=== PATIENT | female | born 2000 | race Hispanic/Latino ===

== ENCOUNTER 2019-02-23 07:15 | Inpatient (IN) | payer BC, OTHER ==
--- OUTSIDE RECORDS SUMMARY | 2019-02-23 07:59 | XMS REPORT ---
:2000 Author Organization [employer] Care Team Providers Name Role Phone Brendan Daniels Provider Role Unavailable Allergies, Adverse Reactions, Alerts Substance Reaction Event Type penicillin Info Not Available Drug Allergy Problems No Known Problems Medications No Known Medications Results No Known Results Summary Purpose eClinicalWorks Submission
--- OUTSIDE RECORDS SUMMARY | 2019-02-23 07:59 | XMS REPORT ---
:2000 Author Organization [employer] Care Team Providers Name Role Phone Brendan Daniels Provider Role Unavailable Allergies No Known Allergies Problems No Known Problems Medications Medication Code System Code Instructions Start Date End Date Status Dosage Diflucan NDC 01552403722 150 MG Orally Aug 12, Aug 13, Active 1 tablet Once a day 2017 2017 Flagyl NDC 70704407888 500 MG Orally Aug 12, Aug 19, Active 1 tablet twice a day 2017 2017 Results No Known Results Summary Purpose eClinicalWorks Submission
--- OUTSIDE RECORDS SUMMARY | 2019-02-23 08:00 | XMS REPORT ---
:2000 Author Organization [employer] Care Team Providers Name Role Phone Brendan Daniels Provider Role Unavailable Allergies No Known Allergies Problems Problem Type Condition Code Onset Dates Condition Status Problem Anemia affecting in third O99.013 Active trimester Problem Abnormal ultrasound O28.3 Active Problem Encounter for supervision of normal Z34.03 Active first in third trimester Problem Encounter for supervision of normal Z34.02 Active first in second trimester Problem Needs flu shot Z23 Active Medications No Known Medications Results No Known Results Summary Purpose eClinicalWorks Submission
--- OUTSIDE RECORDS SUMMARY | 2019-02-23 08:00 | XMS REPORT ---
:2000 Author Organization [employer] Care Team Providers Name Role Phone Brendan Daniels Provider Role Unavailable Allergies No Known Allergies Problems Problem Type Condition Code Onset Dates Condition Status Assessment Encounter for supervision of normal Z34.03 Active first in third trimester Assessment Anemia affecting in third O99.013 Active trimester Problem Anemia affecting in third O99.013 Active trimester Problem Abnormal ultrasound O28.3 Active Problem Encounter for supervision of normal Z34.03 Active first in third trimester Assessment Encounter for supervision of normal Z34.02 Active first in second trimester Problem Encounter for supervision of normal Z34.02 Active first in second trimester Problem Needs flu shot Z23 Active Medications Medication Code Code Instructions Start End Status Dosage System Date Date [facility] 24386052315 28-0.8 MG Orally Active 1 tablet Once a day CitraNatal 90 [facility] 27875440310 90-1 & 300 MG Jan 09, Active as directed DHA Orally 2018 Results No Known Results Immunizations Vaccine Administration Date TDAP > 7 Years-Adacel Jan 09, 2019 Summary Purpose eClinicalWorks Submission
--- OUTSIDE RECORDS SUMMARY | 2019-02-23 08:00 | XMS REPORT ---
:2000 Author Organization [employer] Care Team Providers Name Role Phone Brendan Daniels Provider Role Unavailable Allergies No Known Allergies Problems Problem Type Condition Code Onset Dates Condition Status Problem Encounter for supervision of normal Z34.02 Active first in second trimester Problem Needs flu shot Z23 Active Assessment Encounter for supervision of normal Z34.02 Active first in second trimester Assessment Needs flu shot Z23 Active Medications No Known Medications Results No Known Results Immunizations Vaccine Administration Date Afluria Sep 05, 2018 Summary Purpose eClinicalWorks Submission
--- OUTSIDE RECORDS SUMMARY | 2019-02-23 08:00 | XMS REPORT ---
[...] flu shot Z23 Active Medications Medication Code System Code Instructions Start Date End Date Status Dosage Flagyl NDC 50974458471 500 MG Orally Jan 27, Active 1 tablet twice a day 2018 Diflucan NDC 37379906249 150 MG Orally Jan 27, Active 1 tablet Once a day 2019 Results No Known Results Summary Purpose eClinicalWorks Submission
--- OUTSIDE RECORDS SUMMARY | 2019-02-23 08:00 | XMS REPORT ---
:2000 Author Organization [employer] Care Team Providers Name Role Phone Brendan Daniels Provider Role Unavailable Allergies No Known Allergies Problems Problem Type Condition Code Onset Dates Condition Status Assessment Anemia affecting in third O99.013 Active trimester Problem Anemia affecting in third O99.013 Active trimester Problem Abnormal ultrasound O28.3 Active Problem Encounter for supervision of normal Z34.03 Active first in third trimester Assessment Encounter for supervision of normal Z34.03 Active first in third trimester Problem Encounter for supervision of normal Z34.02 Active first in second trimester Problem Needs flu shot Z23 Active Medications Medication Code Code Instructions Start End Status Dosage System Date Date Diflucan [facility] 29659251177 150 MG Orally Jan 27, Active 1 tablet Once a day 2018 CitraNatal 90 [facility] 78068345560 90-1 & 300 MG Jan 09, Active as directed DHA Orally 2018 Flagyl ND 42960829614 500 MG Orally Jan 27, Active 1 tablet twice a day 2018 [facility] 90897855771 28-0.8 MG Orally Active 1 tablet Once a day Results No Known Results Summary Purpose eClinicalWorks Submission
--- OUTSIDE RECORDS SUMMARY | 2019-02-23 08:00 | XMS REPORT ---
:2000 Author Organization [employer]Works Care Team Providers Name Role Phone Brendan Daniels Provider Role Unavailable Allergies No Known Allergies Problems Problem Type Condition Code Onset Dates Condition Status Problem Encounter for supervision of normal Z34.02 Active first in second trimester Problem Needs flu shot Z23 Active Problem Abnormal ultrasound O28.3 Active Assessment Encounter for supervision of normal Z34.02 Active first in second trimester Medications Medication Code System Code Instructions Start Date End Date Status Dosage [facility] 42821795628 28-0.8 MG Orally Active 1 tablet Once a day Results Name Result Date Reference Range Unit Abnormality Flag CBC with Automated Diff ----Basophils % 0.3 48084101 0-1.3 % ----Eosinophils % 0.8 08682009 0-4.4 % ----Absolute Lymphocytes (CBC) 1.8 [id number] 0.7-4.9 ----Absolute Neutrophil 6.3 [id number] 1.8-8.0 ----Red Cell Distribution 13.4 [id number] 12.1-15.2 % Width ----Absolute Eosinophils 0.1 42382781 0-0.5 ----Platelets 333 89594990 152-406 ----Absolute Monocytes 0.5 [id number] 0.1-1.3 ----MCHC 33.3 20181225 32.0-36.0 g/dL ----MCH 26.5 [id number] 27.0-35.0 pg L ----MCV 79.8 48732444 80-100 fL L ----Neutrophils % 72.9 33193758 41.7-73.7 % ----MPV 8.9 32026909 7.6-11.3 fL ----Monocytes % 5.4 67907249 3.3-12.3 % ----Lymphocytes % 20.6 [id number] 15.3-44.8 % ----Absolute Basophils 0.0 11388366 0-0.5 ----White Blood Count 8.6 [id number] 4.3-10.9 ----RBC Red Blood Cell Count 4.21 20181225 3.86-4.86 M/ul ----Hemoglobin 11.2 20181225 12.0-15.0 g/dL L ----Hematocrit 33.6 20181225 36.0-45.0 % L Glucose 1 Hour Gestational ----Glucose 1 Hour Gestational 81 [id number] <180 mg/dL Summary Purpose eClinicalWorks Submission
--- OUTSIDE RECORDS SUMMARY | 2019-02-23 08:00 | XMS REPORT ---
[...] Start End Status Dosage System Date Date Flagyl [facility] 19867308143 500 MG Orally Jan 27, Active 1 tablet twice a day [address] [facility] 90734106354 28-0.8 MG Orally Active 1 tablet Once a day Diflucan ND 24124576354 150 MG Orally Jan 27, Active 1 tablet Once a day [address] [facility] 13458045547 90-1 & 300 MG Jan 09, Active as directed DHA Orally 2018 Results No Known Results Summary Purpose eClinicalWorks Submission
--- OUTSIDE RECORDS SUMMARY | 2019-02-23 08:00 | XMS REPORT ---
[...] End Status Dosage System Date Date Flagyl [facility] 36316406566 500 MG Orally Jan 27, Active 1 tablet twice a day 2018 CitraNatal 90 [facility] 36890911887 90-1 & 300 MG Jan 09, Active as directed DHA Orally 2018 Diflucan [facility] 08005819152 150 MG Orally Jan 27, Active 1 tablet Once a day 2018 [facility] 66121711691 28-0.8 MG Orally Active 1 tablet Once a day Results No Known Results Summary Purpose eClinicalWorks Submission
--- OUTSIDE RECORDS SUMMARY | 2019-02-23 08:00 | XMS REPORT ---
[...] Instructions Start Date End Date Status Dosage [facility] 99561835289 28-0.8 MG Orally Active 1 tablet Once a day Results No Known Results Summary Purpose eClinicalWorks Submission
--- OUTSIDE RECORDS SUMMARY | 2019-02-23 08:00 | XMS REPORT ---
[...] End Status Dosage System Date Date Diflucan [facility] 54059493791 150 MG Orally Jan 27, Active 1 tablet Once a day 2018 CitraNatal 90 [facility] 70700149807 90-1 & 300 MG Jan 09, Active as directed DHA Orally 2018 Flagyl ND 87756367342 500 MG Orally Jan 27, Active 1 tablet twice a day 2018 [facility] 61773052077 28-0.8 MG Orally Active 1 tablet Once a day Results No Known Results Summary Purpose eClinicalWorks Submission
--- OUTSIDE RECORDS SUMMARY | 2019-02-23 08:00 | XMS REPORT ---
[...] Start End Status Dosage System Date Date CitraNatal 90 [facility] 76407196061 90-1 & 300 MG Jan 09, Active as directed DHA Orally 2018 [facility] 90813353573 28-0.8 MG Orally Active 1 tablet Once a day Results No Known Results Summary Purpose eClinicalWorks Submission
--- OUTSIDE RECORDS SUMMARY | 2019-02-23 08:00 | XMS REPORT ---
:1999 Author Organization eClinicalWorks Care Team Providers Name Role Phone Brendan Daniels Provider Role Unavailable Allergies, Adverse Reactions, Alerts Substance Reaction Event Type penicillin Info Not Available Drug Allergy Problems Problem Type Condition Code Onset Dates Condition Status Problem Encounter for supervision of Z34.02 Active normal first in second trimester Problem Needs flu shot Z23 Active Assessment Encounter to determine O36.80X0 Active viability of , single or unspecified fetus Assessment Amenorrhea N91.2 Active Assessment Encounter for supervision of Z34.91 Active low-risk in first trimester Medications No Known Medications Results No Known Results Summary Purpose eClinicalWorks Submission
[2019-02-23] MEDS ORDERED: BUTORPHANOL 1 MG/ML INJ IV PRN (08:22)
[2019-02-23] MEDS ORDERED: METHYLERGONOVINE 0.2MG/ML AMP IM PRN (08:22)
[2019-02-23] MEDS ORDERED: Ringers Lactate 1,000 ML IV PRN (08:22)
[2019-02-23] MEDS ORDERED: CARBOPROST TROME 250 MCG/ML IM PRN (08:22)
[2019-02-23] MEDS ORDERED: PROMETHAZINE 25 MG/ML VIAL IV PRN (08:22)
[2019-02-23 08:43] LABS: RPR Titer ND
[2019-02-23 08:54] LABS: Absolute Lymphocytes (CBC) 2.6 K/uL (0.7-4.9); Absolute Monocytes 0.4 K/uL (0.1-1.3); Absolute Neutrophil 5.7 K/uL (1.8-8.0); Basophils % 0.2 % (0-1.3); Eosinophils % 0.7 % (0-4.4); Hematocrit 36.7 % (36.0-45.0); Lymphocytes % 29.8 % (15.3-44.8); MPV 9.7 fL (7.6-11.3); Monocytes % 4.8 % (3.3-12.3); RBC Red Blood Cell Count 4.68 M/uL (3.86-4.86)
[2019-02-23] MEDS ORDERED: OXYTOCIN/LR 20 UNIT/1,000 ML BAG IV SCH (09:00)
[2019-02-23] MEDS ORDERED: Ringers Lactate 1,000 ML IV SCH (09:00)
[2019-02-23 09:09] LABS: Urine Appearance CLEAR; Urine Bilirubin NEGATIVE (NEG); Urine Blood NEGATIVE (NEG); Urine Color YELLOW; Urine Glucose NEGATIVE (NEG); Urine Protein NEGATIVE (NEG); Urine Urobilinogen 0.2 mg/dL (0.2-1.0); Urine pH 6.5 (5.0-7.0)
[2019-02-23 09:18] LABS: Urine Bacteria <20 /HPF (<20); Urine Culture Reflex Order REFLEXED; Urine RBC <5 /HPF (NONE SEEN)
--- NOTE | 2019-02-23 12:05 | P.OBGYNHP ---
Certification for Inpatient Patient admitted to: Inpatient With expected LOS: >2 Midnights Patient will require the following post-hospital care: None Practitioner: I am a practitioner with admitting privileges, knowledge of patient current condition, hospital course, and medical plan of care. Services: Services provided to patient in accordance with Admission requirements found in Title 42 Section 412.3 of the Code of Federal Regulations Patient History Date of Service: 02/23/19 Reason for admission: INDUCTION OF LABOR History of Present Illness: Patient is a 18-year-old 1 para 0 at 40 weeks gestation who presents for induction of labor. Patient has obtained care beginning at 12 weeks gestation. Patient has been compliant with visits. care complicated by anemia. Otherwise no issues. Quad screen was negative. Anatomy ultrasound revealed bilateral renal pelvis sees which were dilated for which she was referred to [facility]. Last ultrasound was performed her breaks which still found that dilated renal pelves. Will inform pediatrics after delivery. Rh positive Rubella immune 1 hr glucose screen negative GBS negative See record for further details Allergies Penicillins Allergy (Verified 02/23/19 08:21) Hives Home Medications: Pnv95/Ferrous Fumarate/FA [ Vitamin Tablet] 1 tab PO DAILY 02/23/19 - Past Medical/Surgical History Has patient received pneumonia vaccine in the past: No Diabetic: No Past Medical History: Patient denies medical history Past Surgical History: Patient denies surgical history - Family History Family History: Reviewed- Non-Contributory - Family History denies family history Notes: DENIES FAMILY HISTORY - Social History Smoking Status: Never smoker Alcohol use: No CD- Drugs: No Caffeine use: Yes Place of Residence: Home Review of Systems 10-point ROS is otherwise unremarkable Physical Examination - Vital Signs Temperature: 97.9 F Blood Pressure: 123/89 Pulse: 63 Respirations: 18 - General General: Alert and in no apparent distress, Oriented x3 HEENT: Atraumatic Neck: Supple Respiratory: Normal air movement Cardiovascular: No edema, Normal pulses, Regular rate/rhythm Breasts: Normal configuration, Normal contours, Symmetrical Gastrointestinal: Other (Gravid abdomen) Musculoskeletal: No clubbing, No swelling Integumentary: No rashes, No breakdown Neurological: Normal gait, Normal speech - Female Pelvic External genitalia: Normal, No lesions, No masses Vagina: Normal, [place], Moist Cervix: Dilation (2 cm), Effacement (70% effaced), station (-3 station) Uterus: Gravid Adnexa: Unable to evaluate - Obstetrics heart rate tracing: Category 2 Contractions: Frequency (Irregular) Amniotic membrane: AROM (Clear fluid) Laboratory Data (last 24 hrs) 02/23/19 07:35: WBC 8.9, Hgb 12.0, Hct 36.7, Plt Count 298 Assessment and Plan - Plan Patient is a 18-year-old 1 para 0 at 40 weeks gestation who presents for induction of labor. GBS is negative. Rupture membranes has been performed. Pitocin is being given for labor augmentation. Continuous maternal monitoring be performed. Epidural placement at patient's request. Routine intrapartum care. Discharge Plan: Home Plan to discharge in: 72 Hours - Advance Directives Does patient have a Living Will: No Does patient have a Durable POA for Healthcare: No
[2019-02-23 14:06] VITALS: BMI 37.0
[2019-02-23] MEDS ORDERED: NA CIT/CITRIC AC 30 ML ORAL UDC PO ONE (15:12)
[2019-02-23] MEDS ORDERED: CEFAZOLIN 2 GM in NA CHLORIDE 0.9% 100 ML IVPB ONE (15:12)
[2019-02-23] MEDS ORDERED: CEFAZOLIN/SWI 2gm 2 GM/20 ML SYR ONE (15:30)
[2019-02-23] MEDS ORDERED: MORPHINE SULFATE/PF 1 MG/ML (10 ML AMP) ONE (15:32)
[2019-02-23] MEDS ORDERED: FAMOTIDINE 20 MG/2 ML VIAL IV ONE (15:35)
[2019-02-23] MEDS ORDERED: OXYTOCIN 10 UNIT/ML ML IV ONE (15:41)
[2019-02-23] MEDS ORDERED: ONDANSETRON 4 MG/2 ML VIAL ONE ×2 (15:41→16:23)
[2019-02-23] MEDS ORDERED: METOCLOPRAMIDE 10 MG/2mL INJ IV SCH (16:00)
[2019-02-23] MEDS ORDERED: FENTANYL CITR 250 MCG/5 ML ONE (16:26)
[2019-02-23] MEDS ORDERED: BISACODYL 10 MG RECTAL SUPP RECT PRN (16:59)
[2019-02-23] MEDS ORDERED: Oxycodone HCl/Acetaminophen 1 TAB TAB PO PRN ×2 (16:59)
[2019-02-23] MEDS ORDERED: METHYLERGONOVINE 0.2 MG TAB PO PRN (16:59)
[2019-02-23] MEDS ORDERED: ONDANSETRON 4 MG (ODT) TAB PO PRN (16:59)
[2019-02-23] MEDS ORDERED: DOCUSATE NA/SENNA CONC 1 TAB PO PRN (16:59)
[2019-02-23] MEDS ORDERED: ACETAMINOPHEN 500 MG TAB PO PRN (16:59)
--- NOTE | 2019-02-23 17:02 | P.OP ---
Pocket Assembler: Torres Galvez Preoperative diagnosis: Term , category II heart tracing remote from delivery Postoperative diagnosis: same and occiput posterior presentation, small for gestational age Primary procedure: Primary low transverse section Anesthesia: Spinal Estimated blood loss: 800cc Specimen: cord blood, placenta Operative Technique: The patient was taken to the operating room where epidural anesthesia was found to be adequate. The patient was prepped and draped in the usual sterile fashion in the dorsal supine position with a left-saunders tilt. A Pfannenstiel skin incision was made with the scalpel and carried through muliple layers of adipose tissue to the underlying layer of fascia using the scalpel. The fascia was incised in the midline and extended laterally using Valenzuela scissors. Storm clamps were used to elevate the superior aspect of the fascial incision, which was elevated, and the underlying rectus muscles were dissected off bluntly and using Valenzuela scissors. Attention was then turned to the inferior aspect of the fascial incision, which in similar fashion was grasped with Storm clamps, elevated, and the underlying rectus muscles were dissected off bluntly and using Valenzuela scissors. The rectus muscles were dissected in the midline. The peritoneum was bluntly dissected, entered, and extended superiorly and inferiorly with good visualization of the bladder. The bladder blade was inserted. The vesicouterine peritoneum was identified with pickups and entered sharply using Metzenbaum scissors. This incision was extended laterally and the bladder flap was created digitally. The bladder blade was reinserted. The lower uterine segment was incised in a transverse fashion using the scalpel and extended using manual traction. Clear fluid was noted. The infant was subsequently delivered atraumatically. The nose and mouth were bulb suctioned. The cord was clamped and cut. The was subsequently handed to the awaiting nursery nurse. Next, cord blood was obtained per the patient's request for cord blood donation, which took several minutes to perform. Subsequent to the collection of this blood, the placenta was removed spontaneously intact with a 3-vessel cord noted. The uterus was exteriorized and cleared of all clots and debris. The uterine incision was repaired in 2 layers using 1 vicryl suture. Hemostasis was visualized. The uterus was returned to the abdomen. The uterine incision was reexamined and was noted to be hemostatic. The rectus muscles were reapproximated in the midline using 0 Vicryl. The fascia was closed with 1 Vicryl, the subcutaneous layer was closed with 2-0 plain gut, and the skin was closed with 3.0 vicryl on a Kyler needle. Sponge, lap, and instrument counts were correct x2. The patient was stable at the completion of the procedure and was subsequently transferred to the recovery room in stable condition. Complications: None Drain(s): Urinary catheter Transferred to: Recovery Room Condition: Good
[2019-02-23] MEDS: KETOROLAC 30 MG/ML INJ IV PRN (22:36)
[2019-02-23 22:48] LABS: RPR (Rapid Plasma Reagin) NON-REACT (NON-REACT)
[2019-02-24] MEDS: KETOROLAC 30 MG/ML INJ IV PRN (04:51)
[2019-02-24 05:09] LABS: Absolute Lymphocytes (CBC) 2.3 K/uL (0.7-4.9); Absolute Monocytes 0.5 K/uL (0.1-1.3); Absolute Neutrophil 8.8 K/uL (1.8-8.0); Basophils % 0.3 % (0-1.3); Eosinophils % 0.1 % (0-4.4); Hematocrit 32.3 % (36.0-45.0); Lymphocytes % 19.4 % (15.3-44.8); MPV 9.2 fL (7.6-11.3); Monocytes % 4.6 % (3.3-12.3); RBC Red Blood Cell Count 4.17 M/uL (3.86-4.86)
[2019-02-24] MEDS: IBUPROFEN 400 MG TAB PO PRN ×3 (11:00→23:28)
[2019-02-24] MEDS ORDERED: IBUPROFEN 200 MG TAB PO ONE ×2 (11:06→17:13)
[2019-02-24] MEDS ORDERED: FAMOTIDINE 20 MG/2 ML VIAL IV ONE (15:12)
[2019-02-25] MEDS: IBUPROFEN 400 MG TAB PO PRN (06:20)
[2019-02-25 07:48] VITALS: BP 123/59; TEMP 96.8
[2019-02-27 04:22] LABS: HBsAG Nonreactive (Nonreactive)
== END 2019-02-25 11:25 | disposition home or self-care (01) | DRG 788 ==
LOC: 2ND-WC 07:15
PROVIDERS: ADMIT Student in an Organized Health Care Education/Training Program; ATTEND Student in an Organized Health Care Education/Training Program
PROC: 10D00Z1 Extraction of Products of Conception, Low, Open Approach (ICD-10-PCS; principal; 2019-02-23 15:40)
DX: O75.0 Maternal distress during labor and delivery (principal); O64.0XX0 Obstructed labor due to incomplete rotation of fetal head, not applicable or unspecified; O36.5930 Maternal care for other known or suspected poor fetal growth, third trimester, not applicable or unspecified; Z3A.40 40 weeks gestation of pregnancy; Z37.0 Single live birth; Z88.0 Allergy status to penicillin
CPT/HCPCS: 36415; 81001; 85025; 86592; 86901; 87086; 87088; 87340; 88307; J0690; J2210; J2405; J2590; J2765; J3010

== ENCOUNTER 2020-09-30 09:32 | Emergency (ER) | payer BC, OTHER ==
[2020-09-30 10:40] LABS: Absolute Lymphocytes (CBC) 2.3 K/uL (0.7-4.9); Basophils % 0.6 % (0-1.3); Hematocrit 43.4 % (36.0-45.0); Lymphocytes % 27.8 % (15.3-44.8); MPV 8.2 fL (7.6-11.3); RBC Red Blood Cell Count 5.31 M/uL (3.86-4.86)
[2020-09-30 11:04] LABS: ALT/SGPT 20 U/L (12-78); AST/SGOT 14 U/L (15-37); Albumin 4.3 g/dL (3.4-5.0); Alkaline Phosphatase 92 U/L (45-117); BUN Blood Urea Nitrogen 10 mg/dL (7-18); Bicarbonate 27 mmol/L (21-32); Bilirubin Direct < 0.1 mg/dL (0-0.2); Bilirubin Total 0.3 mg/dL (0.2-1.0); Glucose Level 96 mg/dL (74-106); Potassium 3.9 mmol/L (3.5-5.1); Protein, Total 8.1 g/dL (6.4-8.2); Sodium Level 139 mmol/L (136-145); Troponin (Emerg Dept Use Only) < 0.02 ng/mL (0.0-0.045)
[2020-09-30 11:05] LABS: Urine Blood 1+ (NEG); Urine Glucose NEGATIVE (NEG); Urine Protein NEGATIVE (NEG); Urine Specific Gravity >1.030 (1.005-1.030); Urine pH 5.5 (5.0-7.0)
[2020-09-30] MEDS ORDERED: LIDOCAINE VISCOUS 2% SOLN 15 ML UDC ONE (12:01)
[2020-09-30] MEDS ORDERED: MAGNES/ALUMIN/SIMET 30ML UCUP ONE (12:01)
--- NOTE | 2020-09-30 12:10 | EDPHYS ---
Physician Documentation [facility] Name: Mariluz Tristan Age: 19 yrs Sex: Female : 2000 Arrival Date: 09/30/2020 Time: 09:35 Bed 14 Private MD: ED Physician Sebastian Tom HPI: 09/30 10:25 This 19 yrs old Female presents to ER via Ambulatory with complaints of cp Breathing Difficulty, Back Pain. 10:25 The patient or guardian reports chest pain that is located primarily in the xyphoid cp area. 10:25 The pain radiates to back. Associated signs and symptoms: Pertinent positives: cp shortness of breath, Pertinent negatives: abdominal pain, cough, diaphoresis, lower extremity pain, lower extremity swelling, syncope. The chest pain is described as sharp. Duration: The patient or guardian reports a single episode, that is still ongoing, but improving. Modifying factors: the symptoms are aggravated by palpation of area. SUPERVISOR SAFETY DEPOSIT: 09:56 LMP N/A - control method ss Historical: - Allergies: 09:56 PENICILLINS; ss - Home Meds: 09:56 Mirena (IUD) [Active]; ss - PMHx: 09:56 None; ss - PSHx: 09:56 ; ss - Immunization history:: Adult Immunizations up to date. - Social history:: Smoking status: Patient denies any tobacco usage or history of. ROS: 10:30 Constitutional: Negative for body aches, chills, fever, poor PO intake. cp 10:30 Eyes: Negative for injury, pain, redness, and discharge. cp 10:30 ENT: Negative for ear pain, sore throat, difficulty swallowing, difficulty handling secretions. 10:30 Cardiovascular: Positive for chest pain, Negative for edema, palpitations. 10:30 Respiratory: Positive for shortness of breath, Negative for cough, wheezing. 10:30 Abdomen/GI: Negative for abdominal pain, nausea, vomiting, and diarrhea. 10:30 Back: Positive for radiated pain. 10:30 Neuro: Negative for altered mental status, headache, weakness. 10:30 All other systems are negative. Exam: 10:35 Constitutional: The patient appears in no acute distress, alert, awake, cp non-diaphoretic, non-toxic, well developed, well nourished. 10:35 Head/Face: Normocephalic, atraumatic. cp 10:35 Eyes: Periorbital structures: appear normal, Conjunctiva: normal, no exudate, no injection, Sclera: no appreciated abnormality, Lids and lashes: appear normal, bilaterally. 10:35 ENT: External ear(s): are unremarkable, Nose: is normal, Mouth: Lips: moist, Oral mucosa: pink and intact, moist, Posterior pharynx: Airway: no evidence of obstruction, patent. 10:35 Neck: ROM/movement: is normal, is supple, without pain, no range of motions limitations. 10:35 Chest/axilla: Inspection: normal, Palpation: is normal, no crepitus, no tenderness. 10:35 Cardiovascular: Rate: normal, Rhythm: regular, Heart sounds: murmur, not appreciated, Edema: is not appreciated, JVD: is not appreciated. 10:35 Respiratory: the patient does not display signs of respiratory distress, Respirations: normal, no use of accessory muscles, no retractions, labored breathing, is not present, Breath sounds: are clear throughout, no decreased breath sounds, no stridor, no wheezing. 10:35 Abdomen/GI: Inspection: abdomen appears normal, Bowel sounds: active, all quadrants, Palpation: abdomen is soft and non-tender, in all quadrants. 10:35 Back: pain, that is mild, of the left subscapular area and right subscapular area, ROM is normal. 10:35 Skin: no rash present. 10:35 Neuro: Orientation: to person, place \T\ time. Mentation: is normal. 10:55 ECG was reviewed by the Attending Physician. cp Vital Signs: 09:51 BP 120 / 72; Pulse 82; Resp 15; Temp 97.7(TE); Pulse Ox 100% ; Weight 73.48 kg; Height ss 5 ft. 0 in. (152.40 cm); Pain 4/10; 11:15 BP 116 / 79; Pulse 62; Resp 15 S; Pulse Ox 99% on R/A; ca1 12:15 BP 124 / 73; Pulse 81; Resp 17 S; Pulse Ox 97% on R/A; ca1 09:51 Body Mass Index 31.64 (73.48 kg, 152.40 cm) MDM: 10:02 Patient medically screened. cp 10:30 Differential diagnosis: abnormal EKG, acute myocardial infarction, acute pericarditis, cp cholecystitis, Cholelithiasis gastroesophageal reflux disease (GERD), pancreatitis, peptic ulcer disease, pericarditis, pulmonary embolus. 12:08 Data reviewed: vital signs, nurses notes, lab test result(s), EKG, radiologic studies, cp plain films, and as a result, I will discharge patient. 12:08 Test interpretation: by ED physician or midlevel provider: ECG, chest xray negative for cp infiltrates. Counseling: I had a detailed discussion with the patient and/or guardian regarding: the historical points, exam findings, and any diagnostic results supporting the discharge/admit diagnosis, lab results, radiology results, the need for outpatient follow up, a family practitioner, to return to the emergency department if symptoms worsen or persist or if there are any questions or concerns that arise at home. Response to treatment: pain improved, and as a result, I will discharge patient. 09/30 10:20 Order name: Basic Metabolic Panel; Complete Time: 11:21 cp 09/30 10:20 Order name: CBC with Diff; Complete Time: 11:21 cp 09/30 11:22 Interpretation: Normal except: RBC 5.31; MCV 81.6. cp 09/30 10:20 Order name: LFT's; Complete Time: 11:21 cp 09/30 11:22 Interpretation: Normal except: AST 14; GLOB 3.8. cp 09/30 10:20 Order name: Troponin (emerg Dept Use Only); Complete Time: 11:21 cp 09/30 10:20 Order name: D-Dimer; Complete Time: 11:21 cp 09/30 10:56 Order name: Urine Dipstick--Ancillary (enter results); Complete Time: 11:21 em1 09/30 10:20 Order name: XRAY Chest (1 view); Complete Time: 12:36 cp 09/30 12:36 Interpretation: Report reviewed. cp 09/30 10:20 Order name: EKG; Complete Time: 10:21 cp 09/30 10:20 Order name: Cardiac monitoring; Complete Time: 10:40 cp 09/30 10:20 Order name: EKG - Nurse/Tech; Complete Time: 10:40 cp 09/30 10:20 Order name: IV Saline Lock; Complete Time: 10:40 cp 09/30 10:20 Order name: Labs collected and sent; Complete Time: 10:40 cp 09/30 10:56 Order name: Urine --Ancillary (enter results); Complete Time: 11:21 em1 09/30 10:20 Order name: O2 Per Protocol; Complete Time: 10:40 cp 09/30 10:20 Order name: O2 Sat Monitoring; Complete Time: 10:40 cp 09/30 10:20 Order name: Urine Dipstick-Ancillary (obtain specimen); Complete Time: 10:40 cp 09/30 10:20 Order name: Urine Test (obtain specimen); Complete Time: 10:40 cp EC:55 Rate is 59 beats/min. Rhythm is regular. DE interval is normal. QRS interval is normal. cp QT interval is normal. T waves are Inverted in lead aVR. Interpreted by me. Reviewed by me. Administered Medications: 11:52 Drug: GI Cocktail without - (Maalox Suspension 30 ml, Lidocaine Liquid 2 % 15 ca1 ml) Route: PO; 12:32 Follow up: Response: No adverse reaction; Marked relief of symptoms; Pain is decreased ca1 Disposition: 09/30/20 12:09 Discharged to Home. Impression: Other chest pain. - Condition is Stable. - Discharge Instructions: Nonspecific Chest Pain. - Prescriptions for Pepcid 20 mg Oral Tablet - take 1 tablet by ORAL route every 12 hours for 10 days; 20 tablet. - Medication Reconciliation Form, Thank You Letter, Antibiotic Education, Prescription Opioid Use form. - Follow up: Private Physician; When: 2 - 3 days; Reason: Worsening of condition. - Problem is new. - Symptoms have improved. Addendum: 10/02/2020 14:37 Co-signature as Attending Physician, Sebastian Tom MD I agree with the assessment and k dr plan of care. Signatures: Dispatcher [employer] EDVT Sebastian Tom MD MD kdr Smirch, Shelby, RN RN Zohaib Elena PA PA cp Acob, Cheryl, RN RN ca1 Corrections: (The following items were deleted from the chart) 09/30 12:42 12:09 09/30/2020 12:09 Discharged to Home. Impression: Other chest pain. Condition is ca1 Stable. Forms are Medication Reconciliation Form, Thank You Letter, Antibiotic Education, Prescription Opioid Use. Follow up: Private Physician; When: 2 - 3 days; Reason: Worsening of condition. Problem is new. Symptoms have improved. cp
--- NOTE | 2020-09-30 12:10 | ER ---
Nurse's Notes [facility] Name: Mariluz Tristan Age: 19 yrs Sex: Female : 2000 Arrival Date: 09/30/2020 Time: 09:35 Bed 14 Private MD: Diagnosis: Other chest pain Presentation: 09/30 09:51 Chief complaint: Patient states: epigastric discomfort that radiates through to back ss that began yesterday. Coronavirus screen: Client denies travel out of the [place] in the last 14 days. At this time, the client does not indicate any symptoms associated with coronavirus-19. Ebola Screen: Patient denies exposure to infectious person. Patient denies travel to an Ebola-affected area in the 21 days before illness onset. Initial Sepsis Screen: Does the patient meet any 2 criteria? No. Patient's initial sepsis screen is negative. Does the patient have a suspected source of infection? No. Patient's initial sepsis screen is negative. Risk Assessment: Do you want to hurt yourself or someone else? Patient reports no desire to harm self or others. Onset of symptoms was September 29, 2020. 09:51 Method Of Arrival: Ambulatory ss 09:51 Acuity: CORNELIA 3 ss ETL ARCHITECT: 09:56 LMP N/A - control method ss Historical: - Allergies: 09:56 PENICILLINS; ss - Home Meds: 09:56 Mirena (IUD) [Active]; ss - PMHx: 09:56 None; ss - PSHx: 09:56 ; ss - Immunization history:: Adult Immunizations up to date. - Social history:: Smoking status: Patient denies any tobacco usage or history of. Screenin:07 Abuse screen: Denies threats or abuse. Denies injuries from another. Nutritional ca1 screening: No deficits noted. Tuberculosis screening: No symptoms or risk factors identified. Fall Risk IV access (20 points). Assessment: 10:07 General: Appears in no apparent distress. comfortable, Behavior is calm, cooperative, ca1 appropriate for age. Pain: Complains of pain in epigastric area Pain radiates to thoracic area Pain currently is 6 out of 10 on a pain scale. Pain began 2-3 days ago. Is intermittent. Neuro: Level of Consciousness is awake, alert, obeys commands, Oriented to person, place, time, situation. Cardiovascular: Heart tones S1 S2 present Capillary refill < 3 seconds Patient's skin is warm and dry. Rhythm is sinus rhythm. Respiratory: Reports shortness of breath with the epigastric pain Airway is patent Respiratory effort is even, unlabored, Respiratory pattern is regular, symmetrical, Breath sounds are clear bilaterally. GI: Abdomen is round non-distended, Bowel sounds present X 4 quads. Abd is soft and non tender X 4 quads. Reports nausea. : No signs and/or symptoms were reported regarding the genitourinary system. EENT: No signs and/or symptoms were reported regarding the EENT system. Derm: Skin is intact, is healthy with good turgor, Skin is pink, warm \T\ dry. Musculoskeletal: Circulation, motion, and sensation intact. Capillary refill < 3 seconds. 11:15 Reassessment: Patient appears in no apparent distress at this time. Patient and/or ca1 family updated on plan of care and expected duration. Pain level reassessed. Patient is alert, oriented x 3, equal unlabored respirations, skin warm/dry/pink. 12:15 Reassessment: Patient appears in no apparent distress at this time. Patient and/or ca1 family updated on plan of care and expected duration. Pain level reassessed. Patient is alert, oriented x 3, equal unlabored respirations, skin warm/dry/pink. Vital Signs: 09:51 BP 120 / 72; Pulse 82; Resp 15; Temp 97.7(TE); Pulse Ox 100% ; Weight 73.48 kg; Height ss 5 ft. 0 in. (152.40 cm); Pain 4/10; 11:15 BP 116 / 79; Pulse 62; Resp 15 S; Pulse Ox 99% on R/A; ca1 12:15 BP 124 / 73; Pulse 81; Resp 17 S; Pulse Ox 97% on R/A; ca1 09:51 Body Mass Index 31.64 (73.48 kg, 152.40 cm) ED Course: 09:35 Patient arrived in ED. ag5 09:55 Triage completed. ss 09:56 Arm band placed on right wrist. ss 09:57 Diana Robles, ZORA is Primary Nurse. ca1 10:02 Zohaib Leon PA is PHCP. cp 10:02 Sebastian Tom MD is Attending Physician. cp 10:07 Patient has correct armband on for positive identification. Placed in gown. Bed in low ca1 position. Call light in reach. Side rails up X2. Pulse ox on. NIBP on. Warm blanket given. 10:35 No provider procedures requiring assistance completed. Initial lab(s) drawn, by me, ca1 sent to lab. Inserted saline lock: 20 gauge in right antecubital area, using aseptic technique. Blood collected. 11:37 XRAY Chest (1 view) In Process Unspecified. EDMS 12:40 IV discontinued, intact, bleeding controlled, No redness/swelling at site. Pressure ca1 dressing applied. Administered Medications: 11:52 Drug: GI Cocktail without - (Maalox Suspension 30 ml, Lidocaine Liquid 2 % 15 ca1 ml) Route: PO; 12:32 Follow up: Response: No adverse reaction; Marked relief of symptoms; Pain is decreased ca1 Outcome: 12:09 Discharge ordered by MD. cp 12:40 Discharged to home ambulatory, with significant other. ca1 12:40 Condition: stable 12:40 Discharge instructions given to patient, Instructed on discharge instructions, follow up and referral plans. medication usage, Demonstrated understanding of instructions, follow-up care, medications, Prescriptions given X 1. 12:42 Patient left the ED. ca1 Signatures: Dispatcher [employer] EDMS Jada Trevino RN RN Zohaib Elena PA PA cp Acob, Cheryl RN RN ca1 [place] ag5 Corrections: (The following items were deleted from the chart) 12:32 12:15 Reassessment: Patient appears in no apparent distress at this time. ca1 ca1
--- NOTE | 2020-09-30 12:34 | RAD REPORT ---
EXAM DESCRIPTION: Donna Single View09/30/2020 11:36 am CLINICAL HISTORY: Chest pain COMPARISON: none FINDINGS: The lungs appear clear of acute infiltrate. The heart is normal size IMPRESSION: No acute abnormalities displayed
[2020-09-30 13:27] VITALS: TEMP 97.7
[2020-09-30 13:30] VITALS: BP 124/73; O2SAT 97
--- NOTE | 2020-09-30 17:50 | EKG ---
Test Date: 2020-09-30 Test Time: 10:47:18 E Learning Designer: FRANNY MEASUREMENT RESULTS: Intervals: Rate: 59 HI: 138 QRSD: 84 QT: 384 QTc: 380 [place]: P: 19 HI: 138 QRS: 30 T: 20 INTERPRETIVE STATEMENTS: Sinus bradycardia Otherwise normal ECG No previous ECG available for comparison Electronically Signed On 09-30-20 17:49:54 CDT by Abraham Fraire
== END 2020-09-30 12:42 | disposition home or self-care (01) ==
LOC: ER 09:32
DX: R07.89 Other chest pain (principal); Z88.0 Allergy status to penicillin
CPT/HCPCS: 36415; 71045; 80048; 80076; 81003; 81025; 84484; 85025; 85379; 93005; 99284

== ENCOUNTER 2021-04-03 07:26 | Day surgery (SDC) | payer BC, SELFPAY ==
[2021-04-03] MEDS ORDERED: CIPROFLOXACIN 400mg IV 400 MG/200 ML BAG IV ONE (08:03)
[2021-04-03] MEDS ORDERED: Ringers Lactate 1,000 ML IV ONE (08:03)
[2021-04-03 08:11] LABS: Specific Gravity 1.025 (1.005-1.030)
[2021-04-03 08:12] LABS: Absolute Lymphocytes (CBC) 2.8 K/uL (0.7-4.9); Basophils % 0.6 % (0-1.3); Hematocrit 37.3 % (36.0-45.0); Lymphocytes % 43.8 % (15.3-44.8); MPV 8.3 fL (7.6-11.3); RBC Red Blood Cell Count 4.59 M/uL (3.86-4.86)
[2021-04-03] MEDS ORDERED: FENTANYL CITR 100 MCG/2 ML ONE (08:29)
[2021-04-03] MEDS ORDERED: propofoL 200 MG/20 ML VIAL IV ONE (08:29)
[2021-04-03] MEDS ORDERED: LIDOCAINE 1% MPF 5 ML VIAL ONE (08:30)
[2021-04-03] MEDS ORDERED: ROCURONIUM 50 MG/5 ML VIAL IV ONE (08:30)
[2021-04-03] MEDS ORDERED: MIDAZOLAM HCL 2 MG/2 ML INJ ONE (08:30)
[2021-04-03 08:32] LABS: ALT/SGPT 16 U/L (12-78); AST/SGOT 11 U/L (15-37); Alkaline Phosphatase 60 U/L (45-117); Amylase 67 U/L (25-115); BUN Blood Urea Nitrogen 13 mg/dL (7-18); Bicarbonate 28 mmol/L (21-32); Bilirubin Direct < 0.1 mg/dL (0-0.2); Bilirubin Total 0.4 mg/dL (0.2-1.0); Glucose Level 94 mg/dL (74-106); Lipase 245 U/L (73-393); Potassium 3.7 mmol/L (3.5-5.1); Protein, Total 7.6 g/dL (6.4-8.2); Sodium Level 141 mmol/L (136-145)
[2021-04-03] MEDS ORDERED: KETOROLAC 30 MG/ML INJ ONE (09:17)
[2021-04-03] MEDS ORDERED: dexAMETHasone 10 MG/ML VIAL ONE (09:17)
[2021-04-03] MEDS ORDERED: GLYCOPYRROLATE 0.2 MG/ML SYR ONE (09:17)
[2021-04-03] MEDS ORDERED: NEOSTIGMINE 1 MG/ML -5 ML ONE (09:22)
[2021-04-03] MEDS ORDERED: ONDANSETRON 4 MG/2 ML VIAL ONE (09:22)
--- NOTE | 2021-04-03 09:28 | P.BOP ---
Preoperative diagnosis: acute cholecystitis, symptomatic cholelithiasis, umbilical hernia Postoperative diagnosis: same Primary procedure: 1. Laparoscopic cholecystectomy Secondary procedure: 2. Open repair of umbilical hernia [employer] Helper: Yvonne Phipps) Estimated blood loss: <10cc Specimen: GB, sac Findings: as above Anesthesia: General Complications: None Transferred to: Recovery Room Condition: Good
[2021-04-03] MEDS: MEPERIDINE HCL 25 MG/ML SYR ONE ×2 (09:43→10:09)
[2021-04-03] MEDS ORDERED: Mastisol Adhesive Liq ONE (09:48)
[2021-04-03 09:50] VITALS: O2SAT 100
[2021-04-03] MEDS ORDERED: CODEINE 30MG/APAP 300MG TAB ONE (11:05)
[2021-04-03 11:17] VITALS: BP 91/72; TEMP 97.1
--- NOTE | 2021-04-03 12:08 | OP ---
Date of Procedure: 04/03/2021 Surgeon: Augustus Daly MD Preoperative Diagnoses: Acute cholecystitis, symptomatic cholelithiasis, umbilical hernia. Postoperative Diagnoses: Acute cholecystitis, symptomatic cholelithiasis, umbilical hernia. Procedures: Laparoscopic cholecystectomy and open repair of umbilical hernia. Anesthesia: General plus local. Specimen: Gallbladder and hernia sac. Indication: This is the case of a 20-year-old patient, who comes to us with above diagnosis. Fully explained the benefits, alternatives, and risks of laparoscopic possible open cholecystectomy and rep air of umbilical hernia. The benefits, alternatives, and risks were fully explained, which include, but not limited to infection, bleeding, damage to adjacent structures, anesthesia complication, eric docholithiasis, bile leak, pancreatitis, NM, and even . She also understands this may not relie ve any symptoms. She might need more than one surgical intervention. She understood, signed a conse nt. Procedure In Detail: The patient was brought to the operating room, placed in supine position. Anes thesia was done without complication. Abdominal area was prepped and draped in sterile fashion. Mar baldo 0.5% was injected for local anesthetic followed by sharp incision of the skin in the infraumbil ical region. Incision was carried down until we found a small hernia sac present. Some incarcerated omentum was retracted back into the abdominal cavity after removing some adhesions and the hernia sa c was removed. The fascial edges were cleaned and then we placed Vicryl #1 inside of the fascia. Montano sson trocar was carefully introduced. Pneumoperitoneum was obtained. I placed 3 more trocars, 5 mm each one of them in the epigastric and right upper quadrant under direct visualization. This allowed me to put a grasper in the fundus of the gallbladder and another grasper in the infundibulum retract ing the gallbladder in the inferolateral fashion exposing the triangle of Calot, obtaining critical v iew. Cystic duct and cystic artery were clearly isolated, freed circumferentially and a connection b etween those and the gallbladder were clearly identified. I proceeded to ligate those by using at le ast 3 clips proximal, 1 clip distal, ligation in the middle. Same was done with the cystic artery. No bile leak. No bleeding. The gallbladder was removed from liver using Bovie cauterizer and remove d from abdominal cavity using an EndoCatch through the umbilical incision. The area was inspected on ce again. No bile leak. No bleeding. At that moment, I proceeded to remove the trocars under direc t vision, deflated pneumoperitoneum, closed the fascia and umbilical hernia with #1 Vicryl. Irrigate d the subcutaneous tissue, closed with 3-0 chromic and the skin in a subcuticular fashion with 3-0 ch romic and Steri-Strips on top. Sponge count and instrument counts correct. The patient tolerated th e procedure well. The patient was sent to recovery in stable condition. ALECIA/SADIA Voice ID: [id number] Report ID: [id number]
--- NOTE | 2021-04-03 12:11 | DS ---
Date of Discharge: 04/03/2021 Diagnoses: Acute cholecystitis, symptomatic cholelithiasis, umbilical hernia. Procedures: Laparoscopic cholecystectomy, open repair of umbilical hernia. Disposition: Home. Discharge Instructions: Activity as tolerated. No heavy lifting. Plan: Follow up in my office in 1 week. Call for appointment at [phone]. Keep area dry for 48 ivonne rs, then may shower. Keep Steri-Strip intact. Medications: See orders. ALECIA/SADIA Voice ID: [id number] Report ID: [id number]
== END 2021-04-03 11:14 | disposition home or self-care (01) ==
LOC: OR 07:26
PROVIDERS: ATTEND Surgery
PROC: 0WQF0ZZ Repair Abdominal Wall, Open Approach (ICD-10-PCS; 2021-04-03)
PROC: 0FT44ZZ Resection of Gallbladder, Percutaneous Endoscopic Approach (ICD-10-PCS; principal; 2021-04-03 08:30)
DX: K80.10 Calculus of gallbladder with chronic cholecystitis without obstruction (principal); K82.4 Cholesterolosis of gallbladder; K42.9 Umbilical hernia without obstruction or gangrene; Z20.822 Contact with and (suspected) exposure to COVID-19
CPT/HCPCS: 85025; 80048; 36415; 82150; 81025; 80076; 88302; 88304; 83690; 47562; 49585; U0003; J2704; J2250; J3010; J1100; J2175; J2710; J7120; J2405; J0744